=== PATIENT | female | born 1985 | race Caucasian/White ===

== ENCOUNTER 2019-03-11 17:04 | Inpatient (IN) | payer OTHER ==
[~2019-03-11] VITALS: Ht 160 cm; Wt 59.0 kg
[2019-03-11 17:09] VITALS: BP 136/81
--- NOTE | 2019-03-11 17:17 | NUR ---
PT TAKEN TO BED 1.
--- NOTE | 2019-03-11 17:18 | NUR ---
Note undone in EDM - 03/11/19 at 1800 by [email or web address] 33/F BIB FAMILY C/O SUDDEN ONSET HEADACHE, NECK PAIN S/P TAKING MACROBID. 12 WEEKS . . PATIENT STATES PAIN OF10/10 AT THIS TIME. PATIENT POSITIONED FOR COMFORT; HOB ELEVATED; BEDRAILS UP X1; BED DOWN. ER MADE AWARE OF PT STATUS.
--- NOTE | 2019-03-11 17:18 | NUR ---
33/F BIB FAMILY C/O HEADACHE, NECK PAIN S/P TAKING MACROBID FOR UTI X YESTERDAY 12 WEEKS . . PATIENT STATES PAIN OF10/10 AT THIS TIME. PATIENT POSITIONED FOR COMFORT; HOB ELEVATED; BEDRAILS UP X1; BED DOWN. ER MD MADE AWARE OF PT STATUS.
--- NOTE | 2019-03-11 18:14 | NUR ---
URINE SPECIMEN SENT TO LAB.
[2019-03-11] MEDS ORDERED: cefTRIAXone 1,000 MG VIAL ONE (18:17)
[2019-03-11 18:21] LABS: APPEARANCE,URINE CLEAR (CLEAR); BILIRUBIN,URINE NEGATIVE (NEGATIVE); BLOOD, URINE 2+ (NEGATIVE); COLOR,URINE YELLOW (YELLOW); LEUKOCYTE ESTERASE ,URINE NEGATIVE (NEGATIVE); NITRITE, URINE NEGATIVE (NEGATIVE); UGLUCOSE NEGATIVE (NEGATIVE)
[2019-03-11 18:31] LABS: BASOPHILS % (AUTO) 0.1 % (0.0-2.0); EOSINOPHILS % (AUTO) 0.2 % (0.0-4.0); HEMATOCRIT 34.9 % (36-48); HEMOGLOBIN 11.5 g/dL (12.0-16.0); LYMPHOCYTES # (AUTO) 0.5 K/uL (2.5-16.5); LYMPHOCYTES % (AUTO) 5.3 % (20.5-51.1); MEAN CORPUSCULAR HEMOGLOBIN 30 pg (27-31); MEAN CORPUSCULAR HGB CONC 33 g/dL (33-37); MONOCYTES # (AUTO) 0.4 K/uL (0.8-1.0); MONOCYTES % (AUTO) 3.9 % (1.7-9.3); NEUTROPHILS # (AUTO) 8.9 K/uL (1.8-7.7); NEUTROPHILS % (AUTO) 90.5 % (42.2-75.2); PLATELET COUNT (AUTO) 352 K/uL (140-450); RED BLOOD CELL COUNT(AUTO) 3.87 MIL/uL (4.20-5.40); RED CELL DISTRIBUTION WIDTH 14.2 % (11.6-13.7); WHITE BLOOD COUNT (AUTO) 9.9 K/uL (4.8-10.8)
[2019-03-11 18:49] LABS: WBC,URINE 0-5 /HPF (0-5)
[2019-03-11 18:50] LABS: ANION GAP 15.3 (8-16); CARBON DIOXIDE 26.3 mmol/L (21-32); CREATININE 0.6 mg/dL (0.6-1.3); POTASSIUM 3.6 mmol/L (3.5-5.1)
[2019-03-11 18:55] LABS: ALBUMIN 3.2 g/dL (3.4-5.0); TOTAL BILIRUBIN 0.2 mg/dL (0.0-1.0)
--- NOTE | 2019-03-11 19:13 | NUR ---
REPORT RECEIVED FROM ALISIA SPRINGER. ASSUMED CARE AT THIS TIME. PT HR AT 126. GIVEN VERBAL ORDER FROM DR JACOBO FOR 1L NS BOLUS.
--- NOTE | 2019-03-11 19:13 | NUR ---
Pt report given to KARIS CRUMP. Transfer of care at this time.
[2019-03-11] MEDS ORDERED: NACL 0.9% 1,000 ML IV ONE ×2 (19:15→19:55)
--- NOTE | 2019-03-11 19:50 | NUR ---
PT HR MAINTAININ BETWEEN 115-125. DR. JACOBO MADE AWARE.
[2019-03-11] MEDS ORDERED: diphenhydrAMINE 50 MG/ML VIAL IVP ONE (20:15)
--- NOTE | 2019-03-11 20:30 | NUR ---
PT AMBULATED TO RESTROOM UNASSISTED.
--- NOTE | 2019-03-11 21:10 | NUR ---
HR DECREASED AND MAINTAININ AT 110-114. WILL CONTINUE TO MONITOR
--- NOTE | 2019-03-11 21:20 | NUR ---
Patient will be admitted to care of DR. PIZANO. Admited to [facility]. Will go to room 11A. Belongings list completed. Report to ALISIA DELAROSA. TRANSFER OF CARE AT THIS TIME.
--- NOTE | 2019-03-11 21:45 | NUR ---
PATIENT TRANSFERRED TO [facility] UNIT BED 111A VIA GURNEY, AMBULATED TO BED WITHOUT INCIDENT. RECEIVED REPORT FROM ER NURSE AT BEDSIDE. PATIENT ANOx4, FOLLOWS COMMANDS, MAKES NEEDS KNOWN. 12 WEEKS GESTATION. ON ROOM AIR, VITALS WNL EXCEPT HEART RATE, TACHYCARDIC-113 BPM. PATIENT COMPLAINING OF PAIN AT NECK AND HEAD, 8/10. NO OBVIOUS SIGN OF RASH/SWELLING/EDEMA. SKIN DRY, WARM AND INTACT. LEFT PERIPHERAL IV 20G, INFUSING LAST IV BOLUS OF NS. ORIENTED TO CALL LIGHT, SIDERAILS UP X2, ALL BELONGINGS WITHIN REACH. WILL CONTINUE TO MONITOR.
[2019-03-11 22:00] VITALS: BP 104/61
[2019-03-11] MEDS ORDERED: ACETAMINOPHEN 325 MG TAB PO PRN (22:05)
[2019-03-11] MEDS ORDERED: diphenhydrAMINE 50 MG/ML VIAL IVP PRN (22:05)
[2019-03-11] MEDS ORDERED: ALBUTEROL 0.083% 2.5 MG/3 ML NEBU INH PRN (22:05)
[2019-03-11] MEDS ORDERED: ONDANSETRON 4 MG/2 ML VIAL IVP PRN (22:05)
--- NOTE | 2019-03-11 23:10 | NUR ---
MAINTENANCE IV FLUIDS STARTED PER ORDER. PERIPHERAL IV AT LEFT AC, FLUSHED AND PATENT WITHOUT SYMPTOMS. PROVIDED TYLENOL PER PAIN AND ORIENTED TO PATIENT THAT DOCTOR CANNOT PRESCRIBE A LOT OF PAIN MEDS DUE TO , NO TORADOL OR MORPHINE ETC. PT VERBALIZES UNDERSTANDING.
[2019-03-11] MEDS: NACL 0.9% 1,000 ML IV SCH (23:28)
[2019-03-12] VITALS: BP 92/51
--- NOTE | 2019-03-12 | NUR ---
[facility] SWAB COLLECTED AND WALKED TO LAB ORDERED.
--- NOTE | 2019-03-12 02:10 | NUR ---
ASSISTED PATIENT TO RESTROOM, AMBULATES WITH NO IMPAIRMENT, RECONNECTED IV FLUIDS AND PATIENT BACK TO BED. REQUESTING SOMETHING TO EAT, PATIENT ORDERED REGULAR DIET. WILL BRING FOOD. Addendum: 03/12/19 at 0752 by Osiris Mcgraw RN VOIDED, NO BM
[2019-03-12 04:00] VITALS: BP 91/48
--- NOTE | 2019-03-12 04:30 | NUR ---
PATIENT ABLE TO SELF TURN AND REPOSITION. PATIENT REQUESTING TO LEAVE PILLOW OFF HEAD BECAUSE OF DISCOMFORT. BUT NECK PAIN HAS RESOLVED. CALL LIGHT WITHIN REACH.
--- NOTE | 2019-03-12 06:05 | NUR ---
PATIENT SEEN WITH EYES CLOSED, LYING RIGHT LATERAL. FLACC 0. EQUAL CHEST RISE AND FALL. SIDERAILS UP x2, BED LOCKED AND IN LOW POSITION. IV FLUIDS CONTINUES TO INFUSE. WILL ENDORSE CARE TO AM NURSE.
[2019-03-12 06:53] LABS: BASOPHILS % (AUTO) 0.3 % (0.0-2.0); EOSINOPHILS # (AUTO) 0.1 K/uL (0-0.4); EOSINOPHILS % (AUTO) 1.1 % (0.0-4.0); HEMATOCRIT 30.9 % (36-48); HEMOGLOBIN 10.3 g/dL (12.0-16.0); LYMPHOCYTES # (AUTO) 0.6 K/uL (2.5-16.5); LYMPHOCYTES % (AUTO) 8.3 % (20.5-51.1); MEAN CORPUSCULAR HEMOGLOBIN 30 pg (27-31); MEAN CORPUSCULAR HGB CONC 33 g/dL (33-37); MEAN CORPUSCULAR VOLUME 91.1 fL (80-94); MONOCYTES # (AUTO) 0.5 K/uL (0.8-1.0); NEUTROPHILS # (AUTO) 6.4 K/uL (1.8-7.7); NEUTROPHILS % (AUTO) 84.3 % (42.2-75.2); PLATELET COUNT (AUTO) 287 K/uL (140-450); RED CELL DISTRIBUTION WIDTH 14.2 % (11.6-13.7); WHITE BLOOD COUNT (AUTO) 7.5 K/uL (4.8-10.8)
--- NOTE | 2019-03-12 07:15 | NUR ---
RECEIVED REPORT FROM PROPERTY ASSISTANT NURSE AT BEDSIDE FOR CONTINUITY OF CARE. PT APPEARS STABLE, NO SIGNS OF DISTRESS.PT HAS IV AT LEFT AC 20G WITH NS INFUSING AT 70ML/HR. PT HAS ALLERGY WITH MACROBID, NITROFURANTOIN. PT ON FULL CODE, ON ROOM AIR, REGULAR DIET. CALL LIGHT WITHIN PT'S REACH, BED ON LOW, SIDERAILS UP. WILL CONTINUE MONITORING
[2019-03-12 07:19] LABS: ANION GAP 12.4 (8-16); CARBON DIOXIDE 26.1 mmol/L (21-32); CREATININE 0.5 mg/dL (0.6-1.3); POTASSIUM 4.5 mmol/L (3.5-5.1)
[2019-03-12 08:00] VITALS: BP 94/56
--- NOTE | 2019-03-12 08:41 | NUR ---
PATIENT HAS BEEN SCREENED AND CATEGORIZED LOW NUTRITION RISK. PATIENT WILL BE SEEN WITHIN 7 DAYS OF ADMISSION. 03/18/[address]
--- NOTE | 2019-03-12 09:20 | NUR ---
PT WAS ASSISTED TO THE BATHROOM AND BACK TO BED.
--- NOTE | 2019-03-12 11:42 | NUR ---
Airport Driver Note: Basic Screen: Yes High Risk DC Screen [facility]: [facility] Home Tel: Relationship: [phone] Pre-Admission Living Arrangements: Lives with Other Prior ADL Independent Current Home Health Name/Tel: N/A Current DME/02 Name/Tel: N/A Current Hospice Name/Tel: N/A Current Dialysis Name/Tel: N/A Healthcare Decision Maker: Patient Advance Directive No - REFUSED Physician Orders for Life Sustaining Treatment Form No Patient/Family Have Educational Needs No Information Taught: Advance Directive Person Taught: Patient Teaching Tools: Verbal Factors Affecting Learning: None Participation Level: Refused Evaluation: Verbalizes Understanding Needs Additional Education: No Discipline: Case Mgt/Social Svcs Tentative Discharge Plan/Destination: No Needs Identified Will require assistance post discharge: No Referred to Accounting Technician: No Tentative Discharge Plan Summary: Patient is a 33-year-old female admitted for allergic reaction. Patient has no significant PMHX. Patient was admitted from home and lives with two children and . SW met with patient to verify demographics. Patient reports no history of mental health and no history of substance abuse. Patient's tentative discharge plan is to return home. No further needs identified. Signature: SHYAM Hammer Date: Mar 12, 2019 Time: 11:41
[2019-03-12 12:00] VITALS: BP 100/63
--- NOTE | 2019-03-12 12:15 | NUR ---
PT IS EATING AND WAS ASSISTED TO THE BATHROOM AND ASSISTED BACK TO BED.
--- NOTE | 2019-03-12 13:17 | NUR ---
DR. PIZANO TALKING TO PT NOW AND DISCUSSING REGARDING CARE, ASSESSMENT WAS DONE BY DR. PIZANO TO TEST MENINGITIS AND NEGATIVE, PT VERBALIZED UNDERSTANDING TO MD TEACHINGS .
[2019-03-12] MEDS: NACL 0.9% 1,000 ML IV SCH (13:18)
[2019-03-12 14:50] VITALS: BP 100/63
--- NOTE | 2019-03-12 16:46 | NUR ---
DISCHARGED PT TO HOME AMBULATED TO THE [facility], IV LINE AND ARM BAND REMOVED, DISCHARGED TEACHINGS AND INSTRUCTIONS GIVEN TO PT AND VERBALIZED UNDERSTANDING. PT DENIES PAIN AND NO SOB, BP IS 101/56, PULSE IS 80, O2 SATURATION IS 96% AND TEMP. IS 98.2, PT IS STABLE AT THIS TIME.
== END 2019-03-12 16:46 | disposition home or self-care (01) | DRG 566 ==
LOC: MED 17:04 → MTU 20:28
PROVIDERS: ADMIT Internal Medicine Pulmonary Disease; ATTEND Internal Medicine Pulmonary Disease
DX: O98.511 Other viral diseases complicating pregnancy, first trimester (principal); O23.41 Unspecified infection of urinary tract in pregnancy, first trimester; E86.0 Dehydration; B34.9 Viral infection, unspecified; Z3A.12 12 weeks gestation of pregnancy; Z88.1 Allergy status to other antibiotic agents
CPT/HCPCS: 36415; 76801; 80048; 80053; 81001; 84702; 85025; 86900; 86901; 87081; 96361; 96365; 96375; 99285; J0696; J1200; J7030; J7060; Q0092